=== PATIENT | female | born 1980 | race Two or more races ===

== ENCOUNTER 2017-02-15 16:52 | Inpatient (IN) | payer SELFPAY ==
[~2017-02-15] VITALS: Ht 149.9 cm; Wt 61.2 kg
[2017-02-15] MEDS ORDERED: IV RINGERS,LACTATED 1000ML 1,000 ML IV SCH (17:16)
[2017-02-15] MEDS ORDERED: LIDOCAINE 1% PF 30 ML VIAL. INJ PRN (17:30)
[2017-02-15] MEDS ORDERED: OXYTOCIN 30 UNIT/500 ML PREMIX 500 ML IV PRN ×2 (17:30→18:45)
[2017-02-15] MEDS ORDERED: TERBUTALINE 1 MG/ML VIAL. SQ PRN (17:30)
[2017-02-15] MEDS ORDERED: 0.9 % SODIUM CHLORIDE 10 ML DISP.SYRIN. IV PRN ×2 (17:30→18:45)
[2017-02-15] MEDS ORDERED: fentaNYL PF VIAL 100 MCG/2 ML VIAL IV PRN (17:30)
[2017-02-15 17:39] LABS: HEMATOCRIT 41.9 % (36.0-47.0); HEMOGLOBIN 14.6 g/dL (12.0-15.5); RED BLOOD COUNT 4.38 x10^6/uL (3.50-5.40); RED CELL DISTRIBUTION WIDTH 12.7 % (11.5-14.5); WHITE BLOOD COUNT 9.3 x10^3/uL (4.0-11.0)
[2017-02-15 17:51] VITALS: BP 131/62
[2017-02-15] MEDS ORDERED: OXYTOCIN in NORMAL SALINE PREMIX 30 UNIT/500 ML BAG. IV ONE (18:00)
[2017-02-15] MEDS ORDERED: MMR per PROTOCOL. MC PRN (18:45)
[2017-02-15] MEDS ORDERED: PHENYLEPH/MINERAL OIL/PETROLAT RECTAL OINTMENT 28GM TUBE. RC PRN (18:45)
[2017-02-15] MEDS ORDERED: BENZOCAINE 20% TOPICAL AEROSOL SPRAY 57GM CAN. TP PRN (18:45)
[2017-02-15] MEDS ORDERED: HYDROCORTISONE 1% TOPICAL OINTMENT 30GM TUBE. TP PRN (18:45)
[2017-02-15] MEDS ORDERED: MAGNESIUM HYDROXIDE 2,400 MG/30 ML ORAL.SUSP. PO PRN (18:45)
[2017-02-15] MEDS ORDERED: ZOLPIDEM 5 MG TABLET. PO PRN (18:45)
[2017-02-15] MEDS ORDERED: diphenhydrAMINE HCL 25 MG CAPSULE PO PRN (18:45)
[2017-02-15] MEDS ORDERED: ACETAMINOPHEN 325 MG TABLET. PO PRN (18:45)
[2017-02-15] MEDS ORDERED: HYDROcodone/APAP 5/325MG 1 TAB TABLET PO PRN ×2 (18:45)
[2017-02-15] MEDS ORDERED: MAG HYDROX/ALUMINUM HYD/SIMETH 30 ML ORAL.SUSP PO PRN (18:45)
[2017-02-15] MEDS ORDERED: SIMETHICONE 80 MG TAB.CHEW PO PRN (18:45)
[2017-02-15] MEDS: IBUPROFEN 800 MG TABLET. PO PRN (18:47)
--- NOTE | 2017-02-15 20:16 | PDOC1 ---
OB - History Hx of Present Care: Good Care Ultrasounds: Normal mid trimester US Obstetrical Complications: None Medical Complications: None Other Concerns: Wants tubal ligation post Past Family/Social History * Past Medical, Surgical, Family and Obstetric Histories reviewed from chart. Blood Type: O+ Rubella: Immune RPR/VDRL: Negative GBS Status: Negative HBsAG: Negative OB - Chief Complaint & HPI Date of Admission: Date of Admission: Feb 15, 2017 at 16:52 Chief Complaint/History : 8 Para: 5 EDC: Feb 17, 2017 EGA: [id number] Reason for admission: active labor Admission Nurse Assessment Rev: Yes Problems: (1) Iron deficiency anemia of Assessment & Plan: Intrauterine at Term in active labor. Plan: anticipate normal spontaneous vaginal delivery. OB - Admission Exam Physical Exam Vitals: VS - Last 72 Hours, by Label Date Time Temp Pulse Resp B/P (MAP) Pulse Ox O2 Delivery O2 Flow Rate FiO2 02/15/17 17:51 98.6 85 131/62 (85) 98.6 HEENT: Normal Heart: Regular Rate, Normal S1, Normal S2 Lungs: Clear Abdomen: Gravid, Other Extremities: Normal Pulses, No tenderness or swelling Reflexes: Normal Cervical Dilatation: 10cm (1806 hours when I checked her after monitoring her contractions and vital signs.) Effacement: 100% Station: +2 Membranes: Ruptured Amniotic Fluid: Clear Heart Rate: Normal Accelerations: Accelerations Present Decelerations: Variable decelerations Short Term Variability: Present Poiser Balance Variability: Moderate Contractions on Admission: < 5 Minutes Apart Date/Time Contractions Began;: irregular q 15min apart at 7am, strong and reg. at 3pm Frequency of Contractions: q2-4 minutes Duration: 1-2 minutes Intensity: LIAN Taylor MD Feb 15, 2017 20:16
[2017-02-15 21:00] VITALS: BP 103/67
--- NOTE | 2017-02-15 21:21 | PDOC ---
VAGINAL DELIVERY DATE DATE: 02/15/17 TIME: 21:07 TIME 6:22 PM time of delivery : Other Para: 6 EDC: Feb 17, 2017 EGA: 39.7 VAGINAL DELIVERY: VTX VACCUM ASSISTED: No PLACENTA: Spontaneous (garcia, complete and with 3 vessel cord at 6:26 pm.) 8 and 9 at 1 and 5 minutes respectively. SEX: Male WEIGHT Weight [6 pounds 13.7 ounces or 3110 grams ] Nuchal Cord: No Amniotic Fluid: Clear PAIN: Natural EPISIOTOMY: No EXTENSION: No EBL 300 cc CONDITION none POT PUNCHER Dr. Lian Lawler M.D. ADDITIONAL NOTES Father present at . Signs of Intrauterine Infectio: None Shoulder Dystocia: No DIAGNOSIS Spontaneous Vaginal Delivery of Term Viable Male Infant Problems: LIAN LAWLER MD Feb 15, 2017 21:21
[2017-02-15 22:00] VITALS: BP 86/53
[2017-02-16 05:22] LABS: BASO % 0 % (0-3); EOS % 1 % (0-3); HEMATOCRIT 40.9 % (36.0-47.0); LYMPH % 28 % (24-48); MEAN CORPUSCULAR HEMOGLOBIN 33 pg (25-35); MEAN CORPUSCULAR HGB CONC 34 g/dL (31-37); MEAN CORPUSCULAR VOLUME 97 fL (79-100); MONO % 7 % (0-9); NEUT % 64 % (31-73); PLATELET COUNT 191 x10^3/uL (140-400); RED BLOOD COUNT 4.23 x10^6/uL (3.50-5.40); RED CELL DISTRIBUTION WIDTH 12.9 % (11.5-14.5)
[2017-02-16 06:09] VITALS: BP 102/70
[2017-02-16 07:32] LABS: RPR REFLEX Non Reactive (Non Reactive)
[2017-02-16] MEDS ORDERED: FERROUS SULFATE 325 MG TABLET. PO SCH (08:00)
[2017-02-16 09:20] VITALS: BP 86/52
[2017-02-16] MEDS ORDERED: FLU VACC QS2017-18 (36MOS+)/PF 0.5 ML SYRINGE. VAX IM ONE (10:45)
[2017-02-16] MEDS: IBUPROFEN 800 MG TABLET. PO SCH ×2 (11:55→22:00)
[2017-02-16] MEDS: IBUPROFEN 800 MG TABLET. PO PRN (19:51)
[2017-02-16 23:00] VITALS: BP 102/67
--- NOTE | 2017-02-17 01:02 | PDOC ---
OB Progress Note Date of Service 02/16/2017 Time of Evaluation 11:00PM Date: 02/15/2017 Time: 1822 Notes Feeling much better after this delivery thatn previous deliveries. No light headedness or weakness. Minimal vaginal bleeding. Walking around room and to bathroom without any problem. Only complaint is that her uterine cramping is so much worse, than with previous deliveries. Ready for her tubal ligation tomorrow AM per . Again went over the risks and benefits and read and discussed the consent form for the tubal and also for receiving blood if necessary. Patient asked appropriate questions and signed the consent forms without reservations. OB VITAL SIGNS: Temperature (afebrile), Blood Pressure (86/52), Pulse (70-90) Lab Laboratory Tests Test 02/15/17 17:25 02/16/17 04:58 White Blood Count 9.3 x10^3/uL (4.0-11.0) 11.0 x10^3/uL (4.0-11.0) Red Blood Count 4.38 x10^6/uL (3.50-5.40) 4.23 x10^6/uL (3.50-5.40) Hemoglobin 14.6 g/dL (12.0-15.5) 14.0 g/dL (12.0-15.5) Hematocrit 41.9 % (36.0-47.0) 40.9 % (36.0-47.0) Mean Corpuscular Volume 96 fL (79-100) 97 fL (79-100) Mean Corpuscular Hemoglobin 33 pg (25-35) 33 pg (25-35) Mean Corpuscular Hemoglobin Concent 35 g/dL (31-37) 34 g/dL (31-37) Red Cell Distribution Width 12.7 % (11.5-14.5) 12.9 % (11.5-14.5) Platelet Count 196 x10^3/uL (140-400) 191 x10^3/uL (140-400) RPR Titer Additional Testing Non reactive (Non Reactive) Neutrophils (%) (Auto) 64 % (31-73) Lymphocytes (%) (Auto) 28 % (24-48) Monocytes (%) (Auto) 7 % (0-9) Eosinophils (%) (Auto) 1 % (0-3) Basophils (%) (Auto) 0 % (0-3) Neutrophils # (Auto) 7.1 x10^3uL (1.8-7.7) Lymphocytes # (Auto) 3.0 x10^3/uL (1.0-4.8) Monocytes # (Auto) 0.8 x10^3/uL (0.0-1.1) Eosinophils # (Auto) 0.1 x10^3/uL (0.0-0.7) Basophils # (Auto) 0.0 x10^3/uL (0.0-0.2) Laboratory Tests Test 02/16/17 04:58 White Blood Count 11.0 x10^3/uL (4.0-11.0) Red Blood Count 4.23 x10^6/uL (3.50-5.40) Hemoglobin 14.0 g/dL (12.0-15.5) Hematocrit 40.9 % (36.0-47.0) Mean Corpuscular Volume 97 fL (79-100) Mean Corpuscular Hemoglobin 33 pg (25-35) Mean Corpuscular Hemoglobin Concent 34 g/dL (31-37) Red Cell Distribution Width 12.9 % (11.5-14.5) Platelet Count 191 x10^3/uL (140-400) Neutrophils (%) (Auto) 64 % (31-73) Lymphocytes (%) (Auto) 28 % (24-48) Monocytes (%) (Auto) 7 % (0-9) Eosinophils (%) (Auto) 1 % (0-3) Basophils (%) (Auto) 0 % (0-3) Neutrophils # (Auto) 7.1 x10^3uL (1.8-7.7) Lymphocytes # (Auto) 3.0 x10^3/uL (1.0-4.8) Monocytes # (Auto) 0.8 x10^3/uL (0.0-1.1) Eosinophils # (Auto) 0.1 x10^3/uL (0.0-0.7) Basophils # (Auto) 0.0 x10^3/uL (0.0-0.2) Medications Current Medications Sodium Chloride (Normal Saline Flush) 3 ml QSHIFT PRN IV AFTER MEDS AND BLOOD DRAWS; Start 02/15/17 at 17:30; Stop 02/16/17 at 13:46; Status DC Ringer's Solution 1,000 ml @ 125 mls/hr Q8H IV ; Start 02/15/17 at 17:16; Stop 02/16/17 at 13:46; Status DC Fentanyl Citrate (Fentanyl 2ml Vial) 100 mcg PRN Q30MIN PRN IV Severe pain; Start 02/15/17 at 17:30; Stop 02/16/17 at 13:46; Status DC Terbutaline Sulfate (Brethine) 0.25 mg 1X PRN PRN SQ SEE COMMENTS; Start 02/15 at 17:30; Stop 02/16/17 at 17:29; Status DC Lidocaine HCl 30 ml 1X PRN PRN INJ SEE COMMENTS; Start 02/15/17 at 17:30; Stop 02/16/17 at 13:46; Status DC Oxytocin/Sodium Chloride 500 ml @ 0 mls/hr CONT PRN PRN IV Post delivery bleeding; Start 02/15/17 at 17:30; Stop 02/16/17 at 13:46; Status DC Ibuprofen (Motrin) 800 mg PRN Q6HRS PRN PO PAIN Last administered on t 19:51; Start 02/15/17 at 17:30 Sodium Chloride (Normal Saline Flush) 10 ml QSHIFT PRN IV AFTER MEDS AND BLOOD DRAWS; Start 02/15/17 at 18:45; Stop 02/16/17 at 13:46; Status DC Oxytocin/Sodium Chloride 500 ml @ 62.5 mls/hr CONT PRN IV SEE I/O RECORD; Start 02/15/17 at 18:45; Stop 02/16/17 at 02:44; Status DC Acetaminophen (Tylenol) 650 mg PRN Q6HRS PRN PO MILD PAIN / TEMP; Start at 18:45 Ibuprofen (Motrin) 800 mg Q8HRS PO Last administered on 02/16/17t 11:55; Start 02/15/17 at 22:00 Magnesium Hydroxide (Milk Of Magnesia) 2,400 mg PRN DAILY PRN PO CONSTIPATION; Start 02/15/17 at 18:45 Al Hydroxide/Mg Hydroxide (Mylanta Plus Xs) 30 ml PRN Q4HRS PRN PO HEARTBURN / GAS; Start 02/15/17 at 18:45 Simethicone (Gas-X) 80 mg PRN AFTMEALHC PRN PO GAS / BLOATING; Start 02/15/17 at 18:45 Diphenhydramine HCl (Benadryl) 25 mg PRN Q6HRS PRN PO ITCHING; Start 02/15/17 at 18:45 Benzocaine (Americaine) 1 spray PRN QID PRN TP TOPICAL PAIN; Start 02/15/17 at 18:45 Phenyleph/Shark Oil/Min Oil/Petrol (Preparation H) 1 zara PRN QID PRN RC RECTAL PAIN; Start 02/15/17 at 18:45 Hydrocortisone (Cortaid) 1 zara PRN QID PRN TP PERINEAL PAIN; Start 02/15/17 at 18:45 Ferrous Sulfate (Feosol) 325 mg BIDWMEALS PO ; Start 02/16/17 at 08:00; Stop 02/16/17 at 13:47; Status DC Zolpidem Tartrate (Ambien) 5 mg PRN QHS PRN PO INSOMNIA, MAY REPEAT X1; Start 02/15/17 at 18:45 Info (Do NOT chart on this placeholder) 1 ea 1X PRN PRN MC SEE COMMENTS; Start 02/15/17 at 18:45 Info (Do NOT chart on this placeholder) 1 ea 1X PRN PRN MC SEE COMMENTS; Start 02/15/17 at 18:45 Acetaminophen/ Hydrocodone Bitart (Lortab 5/325) 1 tab PRN Q4HRS PRN PO MILD PAIN; Start 02/15/17 at 18:45 Acetaminophen/ Hydrocodone Bitart (Lortab 5/325) 2 tab PRN Q4HRS PRN PO MODERATE PAIN, SEVERE PAIN; Start 02/15/17 at 18:45 Oxytocin/Sodium Chloride (Oxytocin Premix Infusion) 30 unit STK-MED ONCE IV ; Start 02/15/17 at 18:00; Stop 02/16/17 at 13:46; Status DC Influenza Virus Vaccine Quadrival (Fluarix Quad [id number] Syringe) 0.5 ml ONCE ONCE VAX IM ; Start 02/16/17 at 10:45; Stop 02/16/17 at 10:49; Status DC Exam Comfortable, no apparent distress. Neck- supple. Lungs- clear. Heart- reg, S1S2. Breasts- full, nontender. Abdomen- soft, bowel sounds active. Uterine fuindus 2 fingerbreadths below umbilicus, firm and only mildly tender to deep palpation. Ext. - no c, c, or e. Stability Assessment: other (stable and ready for tubal ligation in AM) Assessment First day - stable Plan of Care: Continue current Tx, Mgmt LIAN MOE MD Feb 17, 2017 01:02
[2017-02-17 06:13] VITALS: BP 116/75
[2017-02-17] MEDS ORDERED: BUPIVAC MPF-EPI 0.5%-1:200000 30 ML VIAL. ONE (06:13)
[2017-02-17] MEDS ORDERED: LIDOCAINE 2% PF Vial for OR 5 ML VIAL. ONE (07:24)
[2017-02-17] MEDS ORDERED: PROPOFOL 0 ML IV ONE (07:24)
[2017-02-17] MEDS ORDERED: IV RINGERS,LACTATED 1000ML 1,000 ML IV SCH (07:46)
[2017-02-17] MEDS ORDERED: SUCCINYLCHOLINE 200 MG/10 ML VIAL. ONE (07:51)
[2017-02-17] MEDS ORDERED: fentaNYL PF VIAL 100 MCG/2 ML VIAL ONE (07:51)
[2017-02-17] MEDS ORDERED: SEVOFLURANE 31 TO 60 MINUTES. IH ONE (07:52)
[2017-02-17] MEDS ORDERED: DEXAMETHASONE SOD PHOS 20 MG/5 ML VIAL. ONE (07:52)
[2017-02-17] MEDS ORDERED: ONDANSETRON PF 4 MG/2 ML VIAL. ONE (07:52)
[2017-02-17] MEDS ORDERED: PROCHLORPERAZINE 10 MG/2 ML VIAL. IV PRN (08:00)
[2017-02-17] MEDS ORDERED: LIDOCAINE 1% PF 2 ML VIAL. ID PRN (08:00)
[2017-02-17] MEDS ORDERED: MORPHINE SULFATE 2 MG/ML DISP.SYRIN. IV PRN (08:00)
[2017-02-17] MEDS ORDERED: HYDROmorphone 2 MG/ML VIAL IV PRN (08:00)
[2017-02-17] MEDS ORDERED: ONDANSETRON PF 4 MG/2 ML VIAL. IV PRN (08:00)
[2017-02-17] MEDS ORDERED: fentaNYL PF VIAL 100 MCG/2 ML VIAL IV PRN ×2 (08:00)
--- NOTE | 2017-02-17 08:57 | PDOC3 ---
OB DISCHARGE SUMMARY DATE OF ADMISSION: 02/15/17 DATE OF DISCHARGE: 02/17/17 REASON FOR ADMISSION: Onset of labor PROCEDURES: Ultrasound INTRAPARTUM PROCEDURES: Spontanous Vag Deliv PROCEDURES: None OPERATIONS: None DISCHARGE DIAGNOSIS: Term Delivered DISCHARGE INFORMATION: Activity, Diet HOSPITAL COURSE Unremarkable CONDITION AT DISCHARGE Stable DYLLAN CHOPRA MD Feb 17, 2017 08:57
[2017-02-17] MEDS ORDERED: NAPR500T4 PO (09:04)
[2017-02-17] MEDS ORDERED: HYDR-971 PO (09:04)
[2017-02-17 09:30] VITALS: BP 100/65
[2017-02-17] MEDS: IBUPROFEN 800 MG TABLET. PO PRN (10:15)
== END 2017-02-17 11:36 | disposition home or self-care (01) | DRG 775 ==
LOC: OBSVTOIN 16:52 → 3 SO LND 16:52 → 3 NORTH 20:53
PROVIDERS: ADMIT Family Medicine; ATTEND Family Medicine
PROC: 10E0XZZ Delivery of Products of Conception, External Approach (ICD-10-PCS; principal; 2017-02-15)
DX: O99.02 Anemia complicating childbirth (principal); D50.9 Iron deficiency anemia, unspecified; Z3A.39 39 weeks gestation of pregnancy; Z37.0 Single live birth
CPT/HCPCS: 36415; 85025; 85027; 86593; 86850; 86900; 86901; 90686; G0378; J0330; J1100; J2405; J2590; J2704; J3010; J3490; J2001